=== PATIENT | female | born 1975 | race Two or more races ===

== ENCOUNTER 2022-10-22 23:09 | Emergency (ER) | payer OTHER ==
[~2022-10-22] VITALS: Ht 162.6 cm; Wt 74.0 kg
[2022-10-23 00:44] LABS: Urine Bacteria FEW /hpf (None Seen); Urine Blood 1+ /uL (Negative); Urine Hyaline Cast FEW /lpf (0 - 2); Urine Specific Gravity 1.004 (1.001-1.035); Urine WBC 7 /hpf (0 - 5)
[2022-10-23] MEDS ORDERED: NITR-87 PO (07:33)
[2022-10-23] MEDS ORDERED: cefTRIAXone SOD 1,000 MG VL IM ONE (07:45)
[2022-10-23] MEDS ORDERED: cloNIDine HCL 0.1 MG TAB PO ONE (07:45)
[2022-10-23 08:05] VITALS: BP 147/75
== END 2022-10-23 08:00 | disposition home or self-care (01) ==
LOC: ER 23:09
DX: I10 Essential (primary) hypertension (principal); N39.0 Urinary tract infection, site not specified; M79.605 Pain in left leg; M79.604 Pain in right leg; Z79.899 Other long term (current) drug therapy
CPT/HCPCS: 81001; 93970; 96372; 99284; J0696

== ENCOUNTER 2024-06-15 16:05 | Inpatient (IN) | payer MEDICAID, OTHER ==
[~2024-06-15] VITALS: Ht 157.5 cm; Wt 77.5 kg
[~2024-06-15 16:05] MED LIST: NITR-87 PO
--- NOTE | 2024-06-15 16:30 | ED.PDOC ---
GI ASSESSMENT HPI Comments 48 y/o F presents to the ED for CC of abdominal pain. Patient states, that she has been experiencing diffuse abdominal pain with associated symptoms of left flank pain and nausea x4days. Patient denies any recent strenuous activity or consumption of out of the ordinary foods. Patient denies hematuria, dysuria, vomiting, or diarrhea. Patient denies social history. No other symptoms or modifying factors at this time. Time Seen by MD: 16:10 Primary Care Provider: GILBERTO Reviewed Notes: Nurses Notes Allergies: Coded Allergies: No Known Drug Allergy (Verified Allergy, Unknown, 12/05/22) Home Meds Active Scripts Pantoprazole Sodium Sesquihydr (Protonix) 40 Mg Tab, 40 MG PO DAILY for 10 Days, #10 TAB Prov:GONZALEZ COX MD 06/15/24 Nitrofurantoin Monohydrate Mac (Macrobid) 100 Mg Cap, 100 MG PO BID for 7 Days, #14 CAP Prov:GONZALEZ CXO MD 10/23/22 Information Source: Patient Mode of Arrival: Ambulatory Timing: Days Duration: Since onset Prehospital treatment: None Quality: None Vomitus: None Stool: Normal Severity: None Recent: None Recent Hx of: None Pain Location: Diffuse Modifying Factors: Nothing Associated sign and symptoms: Nausea Past Medical History PAST MEDICAL HISTORY: Anemia, HTN Surgical History: Denies all surgeries [employer]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 [employer] Hx Family History Family History: Reviewed,noncontributory to illness Social History Smoker: Non-Smoker Alcohol: Denies ETOH Use Drugs: Denies Drug Use Lives In: Home Constitutional: denies: chills, diaphoresis, fatigue, fever, malaise, sweats, weakness, others EENTM: denies: blurred vision, double vision, ear bleeding, ear discharge, ear drainage, ear pain, ear ringing, eye pain, eye redness, hearing loss, mouth pain, mouth swelling, nasal discharge, nose bleeding, nose congestion, nose pain, photophobia, tearing, throat pain, throat swelling, voice changes, others Respiratory: denies: cough, hemoptysis, orthopnea, SOB at rest, shortness of breath, SOB with excertion, stridor, wheezing, others Cardiovascular: denies: chest pain, dizzy spells, diaphoresis, Dyspnea on exertion, edema, irregular heart beat, left arm pain, lightheadedness, palpitations, PND, syncope, others Gastrointestinal: reports: abdominal pain, nausea; denies: abdomen distended, blood streaked bowels, constipated, diarrhea, dysphagia, difficulty swallowing, hematemesis, melena, poor appetite, poor fluid intake, rectal bleeding, rectal pain, vomiting, others Genitourinary: denies: abnormal vagina bleeding, burning, dyspareunia, dysuria, flank pain, frequency, hematuria, incontinence, pain, , vagina discharge, urgency, others Neurological: denies: dizziness, fainting, headache, left sided numbness, left sided weakness, numbness, paresthesia, pre-existing deficit, right sided numbness, right sided weakness, seizure, speech problems, tingling, tremors, weakness, others Musculoskeletal: reports: others (left sided flank pain); denies: back pain, gout, joint pain, joint swelling, muscle pain, muscle stiffness, neck pain Integumetry: denies: bruises, change in color, change in hair/nails, dryness, laceration, lesions, lumps, rash, wounds, others Allergic/Immunocompromised: denies: Difficulty Healing, Frequent Infections, Hives, Itching, others Hematologic/Lymphatic: denies: anemia, blood clots, easy bleeding, easy bruising, swollen glands, others Endocrine: denies: excessive hunger, excessive sweating, excessive thirst, excessive urination, flushing, intolerance to cold, intolerance to heat, unexplained weight gain, unexplained weight loss, others Psychiatric: denies: anxiety, bipolar disorder, depression, hopeless, panic disorder, schizophrenia, sleepless, suicidal, others All Other Systems: Reviewed and Negative Physical Exam General Appearance: Moderate Distress HEENT: Normal ENT Inspection, Pharynx Normal, TMs Normal Neck: Full Range of Motion, Non-Tender, Normal, Normal Inspection Respiratory: Chest Non-Tender, Lungs Clear, No Accessory Muscle Use, No Respiratory Distress, Normal Breath Sounds Cardiovascular: No Edema, No JVD, No Murmur, No Gallop, Normal Peripheral Pulses, Regular Rate/Rhythm Breast Exam: Deferred Gastrointestinal: No Organomegaly, Non Tender, No Pulsatile Mass, Normal Bowel Sounds, Soft Genitalia: Deferred Pelvic: Deferred Rectal: Deferred Extremities: No calf tenderness, Normal capillary refill, Normal inspection, Normal range of motion, Non-tender, No pedal edema Musculoskeletal : Apperance: Normal 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 Was a procedure done?: No GI differential Dx Differential Diagnosis: Cholecystitis, Constipation, Esophagitis, Gastritis/PUD, Gastroenteritis, Electrolyte Imbalance, Food Poisoning, Bacterial, Viral X-Ray, Labs, Meds, VS Vital Signs Date Time Temp Pulse Resp B/P (MAP) Pulse Ox O2 Delivery O2 Flow Rate FiO2 06/15/24 16:31 99 Room Air* 0 21 06/15/24 16:30 98.0 83 17 167/61 (96) 99 98.0 06/15/24 16:28 98.0 83 17 167/61 (96) 99 Lab Test 06/15/24 16:17 Range/Units White Blood Count Pending Red Blood Count Pending Hemoglobin Pending Hematocrit Pending Mean Corpuscular Volume Pending Mean Corpuscular Hemoglobin Pending Mean Corpuscular Hemoglobin Concent Pending Red Cell Distribution Width Pending Platelet Count Pending Mean Platelet Volume Pending Neutrophils (%) (Auto) Pending Lymphocytes (%) (Auto) Pending Monocytes (%) (Auto) Pending Basophils (%) (Auto) Pending Neutrophils # (Auto) Pending Lymphocytes # (Auto) Pending Monocytes # (Auto) Pending Sodium Level 137 136-145 mmol/L Potassium Level 3.7 3.5-5.1 mmol/L Chloride Level 105 98-107 mmol/L Carbon Dioxide Level 26 20-31 mmol/L Anion Gap 6 5-15 Blood Urea Nitrogen 10 9-23 mg/dL Creatinine 0.68 0.550-1.02 mg/dL Glomerular Filtration Rate Calc 106 >90 mL/min BUN/Creatinine Ratio 14.7 10.0-20.0 Serum Glucose 95 74-106 mg/dL Calcium Level 9.4 8.7-10.4 mg/dL Lipase 38 12-53 U/L Patient alert. Complaining of abdominal discomfort. Abdomen is soft nontender. Vitals stable. Answering all questions. Ambulating. No urinary symptoms. Lipase within normal limits. Possible gastritis. Was given Protonix. No sign of sepsis. No leg swelling. No chest pain. Reviewed her history. Explained to the patient. Severe anemia GI consultation. Endoscope. Time of 1ST Reevaluation: 16:40 Reevaluation 1ST: Unchanged Patient Education/Counseling: Diagnosis, Treatment Family Education/Counseling: No Family Present Departure 1 Departure Time of Disposition: 16:58 Impression: Primary Impression: Severe anemia Additional Impression: Gastritis Qualified Codes: K29.00 - Acute gastritis without bleeding Disposition: ADMITTED INPATIENT Admit to: Med Surg Condition: Guarded e-Prescriptions Pantoprazole Sodium Sesquihydr (Protonix) 40 Mg Tab 40 MG PO DAILY for 10 Days, #10 TAB Prov: GONZALEZ COX MD 06/15/24 Critical Care Note Critical Care Time?: No Stability Stability form required: No Heart Score Heart Score: Heart Score Response (Comments) Value History N/A 0 EKG N/A 0 Age N/A 0 Risk Factors N/A 0 Troponin N/A 0 Total 0 I personally scribed for GONZALEZ COX MD ([email or web address]) on 06/15/24 at 16:30. Electronically submitted by Claritza Guzman ([email or web address]). GONZALEZ COX MD Jun 15, 2024 16:30
[2024-06-15 16:31] VITALS: O2SAT 99
[2024-06-15 16:43] LABS: Basophils # (auto) 0.1 10 ^3/uL (0-0.2); Lymphocytes # (auto) 1.6 10 ^3/uL (0.4-5.4); Monocytes # (auto) 0.5 10 ^3/uL (0-1.3); Neutrophils # (auto) 4.5 10 ^3/uL (1.6-8.6); Nucleated Red Blood Cells % 0.1 %
[2024-06-15 16:45] LABS: Basophils % (auto) 1.2 % (0.0-2.0); Eosinophils # (auto) 0.1 10 ^3/uL (0-0.8); Eosinophils % (auto) 0.9 % (0.0-7.0); Hematocrit 24.2 % (36.0-46.0); Lymphocytes % (auto) 23.3 % (10.0-50.0); Mean Corpuscular Hemoglobin 17.3 pg (28.0-32.0); Mean Corpuscular Hgb Conc. 28.8 g/dL (32.0-36.0); Mean Corpuscular Volume 59.9 fL (80.0-100.0); Monocytes % (auto) 7.4 % (0.0-12.0); Neutrophils % (auto) 67.2 % (37.0-80.0); Platelet Count (auto) 352 10^3/uL (140-450); Red Blood Cells 4.05 10^6/uL (4.0-5.20); White Blood Cell 6.7 10^3/uL (4.4-10.8)
[2024-06-15 16:48] LABS: Chloride 105 mmol/L (98-107); Potassium 3.7 mmol/L (3.5-5.1); Sodium 137 mmol/L (136-145)
[2024-06-15 16:49] LABS: Anion Gap 6 (5-15); Calcium 9.4 mg/dL (8.7-10.4); Carbon Dioxide 26 mmol/L (20-31)
[2024-06-15 16:54] LABS: BUN/Creatinine Ratio 14.7 (10.0-20.0); Blood Urea Nitrogen 10 mg/dL (9-23); Glucose 95 mg/dL (74-106); Lipase 38 U/L (12-53)
[2024-06-15] MEDS ORDERED: PANT40TA2 PO (16:59)
[2024-06-15 17:06] LABS: Red Cell Distribution Width 21.2 % (11.8-14.3)
[2024-06-15 17:11] LABS: Urine Bacteria None Seen /hpf (None Seen)
[2024-06-15] MEDS: PANTOPRAZOLE 40 MG/10 ML VIAL INJ IV ONE (17:21)
[2024-06-15 17:37] LABS: Urine Blood Negative /uL (Negative); Urine Clarity Clear (Clear); Urine Color Light-Yellow (Yellow); Urine Mucus FEW (None Seen); Urine Protein, UAD Negative (Negative); Urine Specific Gravity 1.022 (1.001-1.035); Urine Squamous Epithelial Cell MOD /hpf (<5); Urine Urobilinogen Normal (Negative); Urine WBC 3 /HPF (0-5); Urine pH 6.5 (5.0-9.0)
[2024-06-15 18:03] VITALS: PULSE 69; RESP 16; O2SAT 99
[2024-06-15 19:02] LABS: Anisocytosis Slight; Hypochromia Marked; Platelet Estimate Adequate
[2024-06-15 19:03] LABS: Large Platelets FEW
--- NOTE | 2024-06-15 19:26 | DVH ---
Exam: CT CT AB PEL WO CON-NO ORAL OR IV History: abd. pain Comparison Study: None available TECHNIQUE: Multidetector CT of the abdomen and pelvis was performed from lung bases to pubic symphysi s. Imaging was performed without IV contrast. Axial, coronal, and sagittal multiplanar reformats were obtained from the axial data set by the technologist. RADIATION DOSE: DLP 541.96 mGy.cm; CTDI vol 10.23 mGy. Findings: Lungs: The lung bases are clear. Heart: No cardiomegaly or pericardial effusion. Liver: Unremarkable. Gallbladder: Unremarkable. Spleen: Unremarkable Pancreas: Unremarkable Adrenals: Unremarkable Kidneys: Unremarkable GI tract: Diverticulosis without evidence of acute diverticulitis. : Bilateral ovarian cystic lesions. Mildly enlarged uterus with free fluid in the endometrium. Vasculature: Unremarkable Lymphadenopathy: Absent Peritoneum: No ascites Musculoskeletal: Unremarkable Soft tissues: Unremarkable Impression: 1. No acute abdominopelvic abnormalities. 2. Diverticulosis without evidence of acute diverticulitis. 3. Bilateral ovarian cystic lesions. Mildly enlarged uterus with free fluid in the endometrium. Recom mend pelvic ultrasound for further evaluation.
[2024-06-15 19:35] VITALS: PULSE 74; RESP 16; O2SAT 100
[2024-06-15 20:08] LABS: % Iron Saturation 3.8 % (15-50)
[2024-06-15 20:13] LABS: INR 0.95 (0.9-1.15); Partial Thromboplastin Time 25.1 SEC (24.5-34.5); Prothrombin Time 10.1 sec (9.3-11.8)
[2024-06-15 21:21] VITALS: BP 165/53; PULSE 73; RESP 19; TEMP 97.9; O2SAT 100
[2024-06-15] MEDS: HYDROcodone-ACET 5/325MG TAB PO PRN (22:29)
--- NOTE | 2024-06-15 23:26 | DVHHP2 ---
History of Present Illness Reason for Visit: Abdominal pain History of Present Illness 48-year-old female presents for evaluation of pain. Patient presents with a four day history of left upper quadrant abdominal pain and occasionally epigastric pain. She also reports episodes of nausea without emesis. She states his symptoms became worse yesterday so she presented for further evaluation. Denies dysuria or hematuria. No fever or chills. No other acute complaints reported. Past Medical History Hypertension and anemia Past Surgical History Denies Family History Noncontributory Smoke: No ALCOHOL: none Drugs: None Lives: with Family Review of Systems Review of Systems Review of systems are currently negative otherwise addressed in HPI. Allergies: Coded Allergies: No Known Drug Allergy (Verified Allergy, Unknown, 12/05/22) Medications Current Medications Medications Dose Ordered Sig/Jose A Route Start Time Stop Time Status Last Admin Dose Admin Pantoprazole Sodium 40 mg DAILY IV 06/16/24 10:00 Acetaminophen/ Hydrocodone Bitart 1 tab Q4HP PRN PO 06/15/24 18:45 06/15/24 22:29 1 TAB Ondansetron HCl 4 mg Q4HP PRN IV 06/15/24 18:45 Acetaminophen 650 mg Q6HP PRN PO 06/15/24 18:45 Exam Vital Signs Vital Signs Date Time Temp Pulse Resp B/P (MAP) Pulse Ox O2 Delivery O2 Flow Rate FiO2 06/15/24 21:55 Room Air* 0 21 06/15/24 21:21 97.9 73 19 165/53 (90) 100 97.9 Exam Gen: 48-year-old female in mild distress Skin: Warm, dry, normal color and texture, no rash. HEENT: Normocephalic atraumatic, mucous membranes moist and pink. Neck: Cervical and supraclavicular nodes normal without enlargement, trachea is midline, thyroid gland is normal without masses. Pulmonary: Clear to auscultation and percussion bilaterally. Cardiac: Regular rate and rhythm. No murmur Abdomen: Soft, left upper quadrant pain, nondistended, bowel sounds present all 4 quadrants, no guarding, no rigidity, no organomegaly. Extremities: No cyanosis, clubbing, no edema Neuro: Cranial nerves II through XII grossly intact, normal affect and speech, no focal motor deficits. Labs/Xrays ORDERING PHYSICIAN: MARICRUZ DUFFY PROCEDURE(s): ABPL - CT AB PEL WO CON-NO ORAL OR IV REASON: abd. pain ORDER NUMBER(s): [id number], ACCESSION NUMBER(s): [id number] Exam: CT CT AB PEL WO CON-NO ORAL OR IV History: abd. pain Comparison Study: None available TECHNIQUE: Multidetector CT of the abdomen and pelvis was performed from lung bases to pubic symphysis. Imaging was performed without IV contrast. Axial, coronal, and sagittal multiplanar reformats were obtained from the axial data set by the technologist. RADIATION DOSE: DLP 541.96 mGy.cm; CTDI vol 10.23 mGy. Findings: Lungs: The lung bases are clear. Heart: No cardiomegaly or pericardial effusion. Liver: Unremarkable. Gallbladder: Unremarkable. Spleen: Unremarkable Pancreas: Unremarkable Adrenals: Unremarkable Kidneys: Unremarkable GI tract: Diverticulosis without evidence of acute diverticulitis. : Bilateral ovarian cystic lesions. Mildly enlarged uterus with free fluid in the endometrium. Vasculature: Unremarkable Lymphadenopathy: Absent Peritoneum: No ascites Musculoskeletal: Unremarkable Soft tissues: Unremarkable Impression: 1. No acute abdominopelvic abnormalities. 2. Diverticulosis without evidence of acute diverticulitis. 3. Bilateral ovarian cystic lesions. Mildly enlarged uterus with free fluid in the endometrium. Recommend pelvic ultrasound for further evaluation. ATED BY: CAROLYN DELGADO DO DICTATED DATE/TIME: 06/15/241922 Labs Test 06/15/24 19:30 06/15/24 16:17 06/15/24 16:00 Range/Units Prothrombin Time 10.1 9.3-11.8 sec Prothrombin Time INR 0.95 0.9-1.15 Activated Partial Thromboplast Time 25.1 24.5-34.5 SEC Iron Level 15 L 50-170 ug/dL Total Iron Binding Capacity 399 250-425 ug/dL Percent Iron Saturation 3.8 L 15-50 % White Blood Count 6.7 4.4-10.8 10^3/uL Red Blood Count 4.05 4.0-5.20 10^6/uL Hemoglobin 7.0 *L 12.2-16.2 g/dL Hematocrit 24.2 L 36.0-46.0 % Mean Corpuscular Volume 59.9 L 80.0-100.0 fL Mean Corpuscular Hemoglobin 17.3 L 28.0-32.0 pg Mean Corpuscular Hemoglobin Concent 28.8 L 32.0-36.0 g/dL Red Cell Distribution Width 21.2 H 11.8-14.3 % Platelet Count 352 140-450 10^3/uL Mean Platelet Volume 8.9 6.9-10.8 fL Neutrophils (%) (Auto) 67.2 37.0-80.0 % Lymphocytes (%) (Auto) 23.3 10.0-50.0 % Monocytes (%) (Auto) 7.4 0.0-12.0 % Eosinophils (%) (Auto) 0.9 0.0-7.0 % Basophils (%) (Auto) 1.2 0.0-2.0 % Neutrophils # (Auto) 4.5 1.6-8.6 10 ^3/uL Lymphocytes # (Auto) 1.6 0.4-5.4 10 ^3/uL Monocytes # (Auto) 0.5 0-1.3 10 ^3/uL Eosinophils # (Auto) 0.1 0-0.8 10 ^3/uL Basophils # (Auto) 0.1 0-0.2 10 ^3/uL Nucleated Red Blood Cells 0.1 % Platelet Estimate Adequate Large Platelets Few Hypochromasia (manual) Marked Poikilocytosis (manual) Slight Anisocytosis (manual) Slight Microcytosis Marked Sodium Level 137 136-145 mmol/L Potassium Level 3.7 3.5-5.1 mmol/L Chloride Level 105 98-107 mmol/L Carbon Dioxide Level 26 20-31 mmol/L Anion Gap 6 5-15 Blood Urea Nitrogen 10 9-23 mg/dL Creatinine 0.68 0.550-1.02 mg/dL Glomerular Filtration Rate Calc 106 >90 mL/min BUN/Creatinine Ratio 14.7 10.0-20.0 Serum Glucose 95 74-106 mg/dL Calcium Level 9.4 8.7-10.4 mg/dL Lipase 38 12-53 U/L Urine Color Light-yellow Yellow Urine Clarity Clear Clear Urine pH 6.5 5.0-9.0 Urine Specific [place] 1.022 1.001-1.035 Urine Protein Negative Negative Urine Ketones Negative Negative Urine Blood Negative Negative /uL Urine Nitrite Negative Negative Urine Bilirubin Negative Negative Urine Urobilinogen Normal Negative mg/dL Urine Leukocyte Esterase Trace Negative /uL Urine RBC 1 0 - 4 /hpf Urine Microscopic WBC 3 0-5 /HPF Urine Squamous Epithelial Cells Mod <5 /hpf Urine Bacteria None seen None Seen /hpf Urine Mucus Few None Seen Urine Glucose Normal Normal mg/dL Assessment/Plan Assessment/Plan Assessment Acute abdominal pain Anemia Hypertension Plan Admit the patient to [facility] to the hospitalist GI consultation Clear liquid diet Continue treatment per orders. Plan discussed with: Patient My Orders Orders - MARICRUZ DUFFY Procedure Category Date Status Time Pantoprazole PHA 06/16/24 In Process (Protonix) 10:00 Basic Metabolic Panel LAB 06/16/24 Verified 04:00 Admit ADMIT 06/15/24 Transmitted 18:31 Hydrocodone-Acet PHA 06/15/24 In Process 5/325mg Tab ([place] 18:45 Ondansetron Hcl PHA 06/15/24 In Process (Zofran) 18:45 Complete Blood Count LAB 06/16/24 Verified 04:00 Condition: Stable JAREK 06/15/24 In Process 18:31 Acetaminophen Tablet PHA 06/15/24 In Process (Tylenol Tablet) 18:45 Clear Liq Diet DIET 06/16/24 Transmitted Breakfast Bedrest With Bathroom JAREK 06/15/24 In Process Privileg 18:31 Ct Ab Pel Wo Con-No CT 06/15/24 Resulted Oral Or Iv 18:31 Pelvic US 06/15/24 Logged 22:51 Stool Occult Blood LAB 06/15/24 Logged 23:05 Date of Service: Jun 15, 2024 Billing Provider: MARICRUZ DUFFY Common Visit Codes: [id number] INP/OBS CARE (MOD) MARICRUZ DUFFY Jun 15, 2024 23:26
[2024-06-16] VITALS (11 sets, daily range): BP systolic 133–150; BP diastolic 8–82; PULSE 62–72; RESP 16–20; TEMP 97.9–99; O2SAT 64–99
--- NOTE | 2024-06-16 01:34 | DVH ---
INDICATION: Abdominal pain TECHNIQUE: Multiple real-time grayscale transabdominal sonographic images along with color and duplex Doppler of the uterus and ovaries were obtained. COMPARISON: None FINDINGS: The uterus measures 12.7 x 9.6 x 5.0 cm. The endometrial stripe measures 0.8 cm. Multiple s mall fibroids are seen throughout the uterus, the largest measuring up to 2.3 cm. Right ovary measures 4.1 x 1.8 x 2.5 cm with normal Doppler color flow. Anechoic cyst in the right o vary measures up to 1.7 cm. Left ovary measures 3.3 x 3.7 x 4.8 cm with normal Doppler color flow. Anechoic cyst in the left ova ry measures up to 3.9 cm. IMPRESSION: No acute findings identified. Multiple small uterine fibroids, the largest measuring up to 2.3 cm.
[2024-06-16 07:53] LABS: Eosinophils # (auto) 0.1 10 ^3/uL (0-0.8); Lymphocytes # (auto) 1.4 10 ^3/uL (0.4-5.4); Monocytes # (auto) 0.3 10 ^3/uL (0-1.3); Nucleated Red Blood Cells % 0.1 %; White Blood Cell 4.1 10^3/uL (4.4-10.8)
[2024-06-16 07:57] LABS: Basophils # (auto) 0.1 10 ^3/uL (0-0.2); Basophils % (auto) 1.5 % (0.0-2.0); Chloride 107 mmol/L (98-107); Eosinophils % (auto) 2.3 % (0.0-7.0); Lymphocytes % (auto) 34.5 % (10.0-50.0); Mean Corpuscular Hemoglobin 17.2 pg (28.0-32.0); Mean Corpuscular Hgb Conc. 29.1 g/dL (32.0-36.0); Mean Corpuscular Volume 59.3 fL (80.0-100.0); Monocytes % (auto) 7.5 % (0.0-12.0); Neutrophils # (auto) 2.2 10 ^3/uL (1.6-8.6); Neutrophils % (auto) 54.2 % (37.0-80.0); Platelet Count (auto) 294 10^3/uL (140-450); Potassium 3.6 mmol/L (3.5-5.1); Red Blood Cells 3.71 10^6/uL (4.0-5.20); Sodium 138 mmol/L (136-145)
[2024-06-16 07:58] LABS: Anion Gap 6 (5-15); Calcium 8.7 mg/dL (8.7-10.4); Carbon Dioxide 25 mmol/L (20-31)
[2024-06-16 08:03] LABS: BUN/Creatinine Ratio 10.1 (10.0-20.0); Glucose 94 mg/dL (74-106)
[2024-06-16 08:08] LABS: Blood Urea Nitrogen 7 mg/dL (9-23)
[2024-06-16 08:13] LABS: Red Cell Distribution Width 20.8 % (11.8-14.3)
[2024-06-16 08:15] LABS: Hemoglobin 6.4 g/dL (12.2-16.2)
[2024-06-16] MEDS: PANTOPRAZOLE 40 MG/10 ML VIAL INJ IV SCH ×2 (10:07→21:07)
--- NOTE | 2024-06-16 11:03 | DVHCONRES ---
Date Seen: Jun 16, 2024 Resident Creating Document: LESLIE MONTALVO RESIDENT History of Present Illness This is a 48-year-old female patient who presented to the ER with a chief complaint of abdominal pain and bloating for the past 4 days. Patient says that the pain is constant radiates to the back and is unrelated to food. Associated symptoms include nausea but no vomiting. Denies constipation or diarrhea. She recently had UTI and was prescribed antibiotics and Motrin which she took twice in the past 4 weeks. Also reports that her menstrual period Used to be heavy, last menstrual period was 2 months back. Profile suggestive of iron-deficiency anemia. Patient is transfused 1 packed RBC already. Hemoglobin was 6.4 on arrival. Patient also reports that yesterday there was red blood in her stool. Does not remember how long she had been bleeding per rectally. Patient seen and examined at the bedside. Rectal exam performed, external hemorrhoids seen but not bleeding. Formed stool noticed which was dark brown. No active bleeding. No masses felt. Allergies: Coded Allergies: No Known Drug Allergy (Verified Allergy, Unknown, 12/05/22) Current Medications Current Medications Medications (Trade) Dose Ordered Sig/Jose A Route PRN Reason Start Time Stop Time Status Last Admin Pantoprazole Sodium (Protonix) 40 mg DAILY IV 06/16/24 10:00 06/16/24 10:07 Acetaminophen/ Hydrocodone Bitart ([place] 5/325MG Tab) 1 tab Q4HP PRN PO MODERATE PAIN (4-6 PAIN SCALE) 06/15/24 18:45 06/15/24 22:29 Ondansetron HCl (Zofran) 4 mg Q4HP PRN IV NAUSEA / VOMITING 06/15/24 18:45 Acetaminophen (Tylenol Tablet) 650 mg Q6HP PRN PO PAIN SCALE 1-3 OR TEMP>100.4 06/15/24 18:45 Review of Systems Eyes: No Pain, No Vision change, No Conjunctivae inflammation, No Eyelid inflammation, No Other, No Redness ENT: No Ear pain, No Ear discharge, No Nose pain, No Nose discharge, No Nose congestion, No Mouth pain, No Mouth swelling, No Throat pain, No Throat swelling, No Other Cardiovascular: No Chest Pain, No Palpitations, No Orthopnea, No PND, No Edema, No Lt Headedness, No Other Respiratory: No Cough, No Dry, No Shortness of breath, No SOB with exertion, No Wheezing, No Hemoptysis, No Pleuritic Pain, No Sputum, No Other Gastrointestinal: Abdominal pain, back pain, nausea. Denies vomiting, constipation or diarrhea. Genitourinary: No Dysuria, No Frequency, No Incontinence, No Hematuria, No Retention, No Other Musculoskeletal: No other, No neck pain, No shoulder pain, No arm pain, No back pain, No hand pain, No leg pain, No foot pain Skin: No Rash, No Lesions, No Jaundice, No Bruising, No Other Vital Signs Vital Signs Date Time Temp Pulse Resp B/P (MAP) Pulse Ox O2 Delivery O2 Flow Rate FiO2 06/16/24 09:00 98.8 65 17 133/69 (90) 97 98.8 06/15/24 21:55 Room Air* 0 21 Physical Exam Obese female patient lying in bed, in no acute distress General: Obese, afebrile, palor, mucosae are moist Cardiovascular: Regular S1 and S2. No murmurs, gallops or rubs. No JVD elevation. No pedal edema Respiratory: Normal B/L air entry on room air. Clear lung sounds on auscultation Abdomen: Soft, epigastric tenderness, nondistended, normoactive bowel sounds, no rebound tenderness, no organomegaly, no masses. Rectal exam performed, external hemorrhoids seen but not bleeding. Formed stool noticed which was dark brown. No active bleeding. No masses felt. Genitourinary: Deferred MSK/skin: Mobilizes 4 limbs. Skin is dry and warm Neurological: No motor, no sensitive deficits, normal speech. Pupils are isocoric and reactive. Psych/Mental Status: A/Ox3 Labs/Diagnostic Data Labs Test 06/16/24 06:53 06/15/24 19:30 06/15/24 16:17 06/15/24 16:00 Range/Units White Blood Count 4.1 #L 4.4-10.8 10^3/uL Red Blood Count 3.71 L 4.0-5.20 10^6/uL Hemoglobin 6.4 *L 12.2-16.2 g/dL Hematocrit 22.0 L 36.0-46.0 % Mean Corpuscular Volume 59.3 L 80.0-100.0 fL Mean Corpuscular Hemoglobin 17.2 L 28.0-32.0 pg Mean Corpuscular Hemoglobin Concent 29.1 L 32.0-36.0 g/dL Red Cell Distribution Width 20.8 H 11.8-14.3 % Platelet Count 294 140-450 10^3/uL Mean Platelet Volume 9.5 6.9-10.8 fL Neutrophils (%) (Auto) 54.2 37.0-80.0 % Lymphocytes (%) (Auto) 34.5 10.0-50.0 % Monocytes (%) (Auto) 7.5 0.0-12.0 % Eosinophils (%) (Auto) 2.3 0.0-7.0 % Basophils (%) (Auto) 1.5 0.0-2.0 % Neutrophils # (Auto) 2.2 1.6-8.6 10 ^3/uL Lymphocytes # (Auto) 1.4 0.4-5.4 10 ^3/uL Monocytes # (Auto) 0.3 0-1.3 10 ^3/uL Eosinophils # (Auto) 0.1 0-0.8 10 ^3/uL Basophils # (Auto) 0.1 0-0.2 10 ^3/uL Nucleated Red Blood Cells 0.1 % Sodium Level 138 136-145 mmol/L Potassium Level 3.6 3.5-5.1 mmol/L Chloride Level 107 98-107 mmol/L Carbon Dioxide Level 25 20-31 mmol/L Anion Gap 6 5-15 Blood Urea Nitrogen 7 L 9-23 mg/dL Creatinine 0.69 0.550-1.02 mg/dL Glomerular Filtration Rate Calc 106 >90 mL/min BUN/Creatinine Ratio 10.1 10.0-20.0 Serum Glucose 94 74-106 mg/dL Calcium Level 8.7 8.7-10.4 mg/dL Prothrombin Time 10.1 9.3-11.8 sec Prothrombin Time INR 0.95 0.9-1.15 Activated Partial Thromboplast Time 25.1 24.5-34.5 SEC Iron Level 15 L 50-170 ug/dL Total Iron Binding Capacity 399 250-425 ug/dL Percent Iron Saturation 3.8 L 15-50 % Platelet Estimate Adequate Large Platelets Few Hypochromasia (manual) Marked Poikilocytosis (manual) Slight Anisocytosis (manual) Slight Microcytosis Marked Lipase 38 12-53 U/L Urine Color Light-yellow Yellow Urine Clarity Clear Clear Urine pH 6.5 5.0-9.0 Urine Specific [place] 1.022 1.001-1.035 Urine Protein Negative Negative Urine Ketones Negative Negative Urine Blood Negative Negative /uL Urine Nitrite Negative Negative Urine Bilirubin Negative Negative Urine Urobilinogen Normal Negative mg/dL Urine Leukocyte Esterase Trace Negative /uL Urine RBC 1 0 - 4 /hpf Urine Microscopic WBC 3 0-5 /HPF Urine Squamous Epithelial Cells Mod <5 /hpf Urine Bacteria None seen None Seen /hpf Urine Mucus Few None Seen Urine Glucose Normal Normal mg/dL Assessment Assessment: Probable GI bleeding Questionable abnormal uterine bleeding Iron-deficiency anemia requiring transfusion secondary to above Diverticulosis but no active diverticulitis Bilateral ovarian cystic lesions Hepatic steatosis CT abdomen completed shows diverticulosis without evidence of active diverticulitis. No acute abdominopelvic abnormalities. Bilateral ovarian cystic lesions. Liver ultrasound shows echogenic liver parenchyma likely related to hepatic steatosis Plan: Scheduled for EGD and colonoscopy 06/17/2024 Consider OBGYN consultation for AUB Continue bowel prep Maintain hemoglobin greater than 7 grams/deciliter. Transfuse as necessary. Continue pantoprazole 40 mg IV b.i.d. Follow up with hepatitis studies Stool occult is negative Plan discussed with the patient in which all questions have been answered Case discussed with Dr. Gibson. Plan discussed with: Patient LESLIE MONTALVO RESIDENT Jun 16, 2024 11:03
--- NOTE | 2024-06-16 11:24 | DVHPN2 ---
Subjective The patient is seen and examined at bedside. The patient still have abdominal pain. The patient's hemoglobin down today at 6.4. Reviewed: Care Plan, H&P, Labs, Medications, Previous Orders, Radiology Changes from previous H/P or p: No Changes Objective Vitals Vital Signs Date Time Temp Pulse Resp B/P (MAP) Pulse Ox O2 Delivery O2 Flow Rate FiO2 06/16/24 09:00 98.8 65 17 133/69 (90) 97 98.8 06/15/24 21:55 Room Air* 0 21 Intake/Output Intake and Output 06/16/24 07:00 Intake Total 400 ml Balance 400 ml Intake Oral 400 ml # Voids 1 General Appearance: Alert, Oriented X3, Cooperative, No acute distress HEENT: Atraumatic, PERRLA, EOMI, Mucous membr. moist/pink Neck: Supple Lungs: Clear to auscultation, Normal air movement Cardiovascular: Regular rate, Normal S1, Normal S2, No murmurs, Gallops, Rubs Neuro: Cranial nerves 3-12 NL Psych/Mental Status: Mental status NL Medications Current Medications Medications Dose Ordered Sig/Jose A Route Start Time Stop Time Status Last Admin Dose Admin Pantoprazole Sodium 40 mg DAILY IV 06/16/24 10:00 06/16/24 10:07 40 MG Acetaminophen/ Hydrocodone Bitart 1 tab Q4HP PRN PO 06/15/24 18:45 06/15/24 22:29 1 TAB Ondansetron HCl 4 mg Q4HP PRN IV 06/15/24 18:45 Acetaminophen 650 mg Q6HP PRN PO 06/15/24 18:45 Laboratory Results Laboratory Tests 06/16/24 06:53 Chemistry Test 06/15/24 16:17 06/16/24 06:53 Calcium Level 9.4 mg/dL (8.7-10.4) 8.7 mg/dL (8.7-10.4) Coagulation Test 06/15/24 19:30 Prothrombin Time 10.1 sec (9.3-11.8) Prothrombin Time INR 0.95 (0.9-1.15) Activated Partial Thromboplast Time 25.1 SEC (24.5-34.5) Lipid panel Test 06/15/24 16:17 Lipase 38 U/L (12-53) Urinalysis Test 06/15/24 16:00 Urine Color Light-yellow (Yellow) Urine Clarity Clear (Clear) Urine pH 6.5 (5.0-9.0) Urine Specific [place] 1.022 (1.001-1.035) Urine Protein Negative (Negative) Urine Ketones Negative (Negative) Urine Blood Negative /uL (Negative) Urine Nitrite Negative (Negative) Urine Bilirubin Negative (Negative) Urine Urobilinogen Normal mg/dL (Negative) Urine Leukocyte Esterase Trace /uL (Negative) Urine RBC 1 /hpf (0 - 4) Urine Microscopic WBC 3 /HPF (0-5) Urine Squamous Epithelial Cells Mod /hpf (<5) Urine Bacteria None seen /hpf (None Seen) Urine Mucus Few (None Seen) Urine Glucose Normal mg/dL (Normal) Labs and/or images reviewed: Labs reviewed by me Assessment/Plan Assessment/Plan Acute abdominal pain Anemia ? acute blood lost Hypertension Bilateral ovary cysts, per patient she had workup as outpatient. Uterine fibroid Plan: Continuing current management. I will type and cross and transfuse one packed red blood cell today. Using top distribution executive I explained to the patient in length why she needs blood transfusions. Waiting for GI specialist to see the patient. Discussed with the patient regarding to her ovarian cysts. Per patient she had a biopsy as outpatient and seen OBGYN as outpatient for that. This medical document was created using an electronic medical record system with [employer] direct computerized dictation system. Although this document has been carefully reviewed, there may still be some phonetic and typographical errors. These areas are purely typographical due to imperfections of the software programs, and do not reflect any compromise in the patient's medical care. Plan discussed with: Patient Date of Service: Jun 16, 2024 Billing Provider: LENO CROSS MD Common Visit Codes: [id number] INP/OBS CARE(HIGH) LENO CROSS MD Jun 16, 2024 11:24
[2024-06-16 12:41] LABS: Alkaline Phosphatase 95 U/L (46-116); Aspartate Aminotransferase 13 U/L (13-40); Total Protein 6.2 g/dL (5.7-8.2)
[2024-06-16 12:44] LABS: Alanine Aminotransferase < 9 U/L (7-40); Bilirubin, Direct < 0.1 mg/dL (<0.3); Bilirubin, Total 0.3 mg/dL (0.2-1.0)
[2024-06-16] MEDS: ONDANSETRON HCL 4 MG/2 ML VIAL IV PRN (14:38)
--- NOTE | 2024-06-16 15:48 | DVH ---
ULTRASOUND ABDOMEN LIMITED INDICATION: cirrhosis TECHNIQUE: Multiple real-time sonographic images of the abdomen were obtained. COMPARISON: CT abdomen 06/15/2024. FINDINGS: The visualized liver parenchyma appears echogenic likely related to hepatic steatosis. . The live r measures 15.5 cm. No discrete hepatic lesion or intrahepatic biliary ductal dilatation is renée ntified. There is no evidence of gallstones, gallbladder wall thickening or pericholecystic fluid. The common biliary duct is not dilated. The right kidney measures 10.3 cm length. No sonographic evidence of nephrolithiasis or hydronephro sis. Visualized portions of the pancreas appears within normal limits. IMPRESSION: 1. Echogenic liver parenchyma likely related to hepatic steatosis. 2. There is no sonographic evidence of cholelithiasis. HS:Y
[2024-06-16] MEDS: GOLYTELY 4L KIT PO ONE ×2 (18:05→23:19)
[2024-06-17] VITALS (8 sets, daily range): BP systolic 124–148; BP diastolic 58–74; PULSE 67–85; RESP 15–20; TEMP 97.5–98.1; O2SAT 97–100
[2024-06-17] MEDS: MAGNESIUM CITRATE SOLUTION 300 ML BTL PO ONE (05:03)
[2024-06-17] MEDS: GOLYTELY 4L KIT PO ONE (05:42)
--- NOTE | 2024-06-17 06:43 | DVH ---
EXAM: XR Chest, 1 View CLINICAL INDICATION: per protocol prior to procedure-Colonoscopy TECHNIQUE: Frontal view of the chest. COMPARISON: XY CHEST PORTABLE on DOS: 12/05/22 FINDINGS: LUNGS AND PLEURAL SPACES: Unremarkable. No consolidation. No pneumothorax. HEART: Unremarkable. No cardiomegaly. MEDIASTINUM: Unremarkable. Normal mediastinal contour. BONES/JOINTS: Unremarkable. No acute fracture. OTHER FINDINGS: . . IMPRESSION: No acute cardiopulmonary process.
[2024-06-17 07:29] LABS: Basophils # (auto) 0 10 ^3/uL (0-0.2); Eosinophils # (auto) 0.1 10 ^3/uL (0-0.8); Hemoglobin 7.7 g/dL (12.2-16.2); Monocytes # (auto) 0.5 10 ^3/uL (0-1.3); Nucleated Red Blood Cells % 0.1 %; White Blood Cell 6.1 10^3/uL (4.4-10.8)
[2024-06-17 07:32] LABS: Basophils % (auto) 0.7 % (0.0-2.0); Eosinophils % (auto) 1.1 % (0.0-7.0); Hematocrit 25.5 % (36.0-46.0); Lymphocytes # (auto) 1.6 10 ^3/uL (0.4-5.4); Lymphocytes % (auto) 26.3 % (10.0-50.0); Mean Corpuscular Hemoglobin 18.8 pg (28.0-32.0); Mean Corpuscular Hgb Conc. 30.1 g/dL (32.0-36.0); Mean Corpuscular Volume 62.5 fL (80.0-100.0); Monocytes % (auto) 7.8 % (0.0-12.0); Neutrophils # (auto) 3.9 10 ^3/uL (1.6-8.6); Neutrophils % (auto) 64.1 % (37.0-80.0); Platelet Count (auto) 274 10^3/uL (140-450); Red Blood Cells 4.09 10^6/uL (4.0-5.20); Red Cell Distribution Width 23.6 % (11.8-14.3)
[2024-06-17 07:49] LABS: Albumin 3.9 g/dL (3.2-4.8); Alkaline Phosphatase 94 U/L (46-116); Anion Gap 11 (5-15); BUN/Creatinine Ratio 9.1 (10.0-20.0); Calcium 9.3 mg/dL (8.7-10.4); Carbon Dioxide 23 mmol/L (20-31); Chloride 104 mmol/L (98-107); Glucose 88 mg/dL (74-106); Magnesium 2.2 mg/dL (1.6-2.6); Sodium 138 mmol/L (136-145)
[2024-06-17 07:50] LABS: Bilirubin, Total 0.4 mg/dL (0.2-1.0); Total Protein 6.4 g/dL (5.7-8.2)
[2024-06-17 07:58] LABS: Alanine Aminotransferase < 9 U/L (7-40); Aspartate Aminotransferase 10 U/L (13-40); Blood Urea Nitrogen 6 mg/dL (9-23); Potassium 3.3 mmol/L (3.5-5.1)
--- NOTE | 2024-06-17 09:35 | ECG ---
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
[2024-06-17] MEDS ORDERED: DexAMETHasone SOD PHOS 10MG/1ML VIAL INJ IV ONE (10:26)
[2024-06-17] MEDS ORDERED: LIDOCAINE VISCOUS 2% 15ML UD ONE (11:34)
[2024-06-17] MEDS ORDERED: fentaNYL CITRATE 100 MCG/2 ML VL ONE (12:25)
[2024-06-17] MEDS ORDERED: MEPERIDINE HCL (25 MG/ML) 1ML VIAL ONE (12:25)
[2024-06-17] MEDS ORDERED: MIDAZOLAM HCL 2MG/2ML 2ml VIAL (1mg/ml) ONE (12:25)
--- NOTE | 2024-06-17 13:01 | DVHOP2 ---
Operative Report DATE OF OPERATION: 06/17/24 PROCEDURE: Upper Endoscopy with biopsy PREOPERATIVE INDICATION: The patient is a 48 -year-old female undergoing endoscopy for anemia iron-deficiency microcytic POSTOPERATIVE DIAGNOSES: 1. Mild gastritis and minimal duodenitis with a couple of superficial erosions PROCEDURE PERFORMED BY: Heike Gibson GI NURSE: Davon SCOPE: Olympus videoendoscope. ASA CLASS: 2. PREOPERATIVE MEDICATIONS: Mac sedation, Dr. Ag PROCEDURE IN DETAIL: After obtaining an informed consent, the patient was placed on left lateral decubitus position. The patient was then sedated with the above medications. A bite block was placed between her teeth. The endoscope was then passed through the oropharynx, into the esophagus, and through the stomach and pylorus up to the second and third part of the duodenum. The endoscope was then withdrawn. The 2nd and 3rd part of the duodenal were normal in the duodenal bulb showed minimal duodenitis Duodenal biopsies were obtained The pre-pyloric area antrum and body showed mild gastritis with a couple of superficial erosions. Gastric biopsies were obtained. On retroflexion the fundus cardia and angularis were normal. The endoscope was then withdrawn into the distal esophagus where she had a slightly irregular squamocolumnar junction but no significant hiatal hernia or esophagitis The remaining distal and proximal esophagus and oropharynx were unremarkable The patient tolerated the procedure well without difficulty. COMPLICATIONS : None SPECIMENS: Duodenal biopsies Gastric biopsies DISPOSITION: Transfer back to the floor Stable PLAN: 1. Await for biopsy result 2. Will place pt on Protonix 40 mg p.o. daily 3. DC aspirin NSAIDs smoking alcohol 4. Outpatient follow up with me in 4-6 weeks to review results and discuss further management HEIKE GIBSON MD Jun 17, 2024 13:01
--- NOTE | 2024-06-17 13:05 | DVHOP2 ---
Operative Report DATE OF OPERATION: 06/17/24 PROCEDURE: Colonoscopy with snare polypectomy. PREOPERATIVE INDICATION: The patient is a 48 -year-old female undergoing colonoscopy for screening due to severe iron-deficiency anemia POSTOPERATIVE DIAGNOSES: 1. Patient had a 5 cm long tubular descending colon multi lobe polyp on a long stalk that was removed completely via snare polypectomy and the specimens were retrieved 2. There was a 3-4 mm benign-appearing proximal descending colon polyp that was seen and removed by snare polypectomy and the specimens were retrieved 3. Moderate scattered diverticular disease most prominent in the sigmoid 4. Trace to 1+ internal hemorrhoids otherwise normal examination up to the cecum PROCEDURE PERFORMED BY: Heike Gibson M.D. SCOPE: Olympus videocolonoscope. ASA CLASS: 2. PREOPERATIVE MEDICATIONS: Dr. Kimberli Carty PROCEDURE IN DETAIL: After obtaining an informed consent, the patient was placed on left lateral decubitus position. She was then sedated with the above medications. A rectal examination was performed that was normal. The colonoscope was then passed through the anus into the rectosigmoid and through the descending, transverse, and ascending colon up to the cecum with visualization of the appendiceal orifice, base of the cecum and the ileocecal valve. The colonoscope was then withdrawn. No colitis was noted. Patient had moderate scattered diverticular disease more prominent in the sigmoid. Patient had a 3-4 mm benign-appearing proximal descending colon polyp that was seen and removed by snare polypectomy and the specimens were retrieved The patient had a large multi lobe 5 cm polyp on a long stalk seen in the descending colon at about 40 cm above the anal verge. This was removed completely via snare polypectomy and the specimens were retrieved On retroflexion and straight on view the patient had trace to 1+ internal hemorrhoids The patient tolerated the procedure well without difficulty. WITHDRAWAL TIME: 12 minutes QUALITY OF THE PREP: [place] Bowel Prep score: 9. COMPLICATIONS : None SPECIMENS: Descending colon polyp proximal Distal descending colon polyp large DISPOSITION: Transfer back to the floor Stable PLAN: 1. Repeat colonoscopy base on biopsy result likely in 2-3 years 2. Resume GI soft diet advance as tolerated 3. Increase fluid and fiber intake 4. Outpatient follow up with me in 4-6 weeks to review results and discuss further management HEIKE GIBSON MD Jun 17, 2024 13:05
[2024-06-17] MEDS: POTASSIUM CHL 20MEQ/100ML 100 ML IV ONE (14:16)
[2024-06-18] VITALS (7 sets, daily range): BP systolic 108–135; BP diastolic 50–72; PULSE 58–75; RESP 17–18; TEMP 36.6; O2SAT 98–99
[2024-06-18 08:57] LABS: Hepatitis B Surface Antigen Negative (Negative)
[2024-06-18 09:16] LABS: Hepatitis C Antibody Negative (Negative)
[2024-06-18 10:02] LABS: Anion Gap 10 (5-15); Carbon Dioxide 22 mmol/L (20-31); Chloride 105 mmol/L (98-107); Potassium 3.6 mmol/L (3.5-5.1); Sodium 137 mmol/L (136-145)
[2024-06-18 10:03] LABS: Calcium 9.4 mg/dL (8.7-10.4)
[2024-06-18 10:08] LABS: BUN/Creatinine Ratio 12.8 (10.0-20.0); Blood Urea Nitrogen 10 mg/dL (9-23)
[2024-06-18 10:20] LABS: Basophils # (auto) 0 10 ^3/uL (0-0.2); Basophils % (auto) 0.1 % (0.0-2.0); Eosinophils # (auto) 0 10 ^3/uL (0-0.8); Hemoglobin 7.8 g/dL (12.2-16.2); Lymphocytes # (auto) 0.9 10 ^3/uL (0.4-5.4)
[2024-06-18 10:22] LABS: Glucose 142 mg/dL (74-106)
[2024-06-18 10:23] LABS: Hematocrit 26.3 % (36.0-46.0); Mean Corpuscular Hemoglobin 19.1 pg (28.0-32.0); Mean Corpuscular Hgb Conc. 29.7 g/dL (32.0-36.0); Mean Corpuscular Volume 64.3 fL (80.0-100.0); Monocytes # (auto) 0.7 10 ^3/uL (0-1.3); Monocytes % (auto) 8.2 % (0.0-12.0); Neutrophils # (auto) 7.3 10 ^3/uL (1.6-8.6); Neutrophils % (auto) 81.7 % (37.0-80.0); Nucleated Red Blood Cells % 0.1 %; Platelet Count (auto) 300 10^3/uL (140-450); Red Blood Cells 4.09 10^6/uL (4.0-5.20); Red Cell Distribution Width 22.8 % (11.8-14.3)
--- NOTE | 2024-06-18 10:37 | DVHPN2 ---
Subjective The patient is seen and examined at bedside. The patient still have abdominal pain. Reviewed: Care Plan, H&P, Labs, Medications, Previous Orders, Radiology Changes from previous H/P or p: No Changes Objective Vitals Vital Signs Date Time Temp Pulse Resp B/P (MAP) Pulse Ox O2 Delivery O2 Flow Rate FiO2 06/17/24 08:50 98.3 63 18 108/69 (82) 98 98.3 06/17/24 07:56 Room Air* 0 21 Intake/Output Intake and Output 06/18/24 07:00 Intake Total 1180 ml Balance 1180 ml Intake Oral 1080 ml IV Total 100 ml # Voids 5 General Appearance: Alert, Oriented X3, Cooperative, No acute distress HEENT: Atraumatic, PERRLA, EOMI, Mucous membr. moist/pink Neck: Supple Lungs: Clear to auscultation, Normal air movement Cardiovascular: Regular rate, Normal S1, Normal S2, No murmurs, Gallops, Rubs Neuro: Cranial nerves 3-12 NL Psych/Mental Status: Mental status NL Medications Current Medications Medications Dose Ordered Sig/Jose A Route Start Time Stop Time Status Last Admin Dose Admin Acetaminophen/ Hydrocodone Bitart 1 tab Q4HP PRN PO 06/15/24 18:45 06/17/24 19:53 1 TAB Ondansetron HCl 4 mg Q4HP PRN IV 06/15/24 18:45 06/16/24 14:38 4 MG Acetaminophen 650 mg Q6HP PRN PO 06/15/24 18:45 Pantoprazole Sodium 40 mg BID IV 06/16/24 22:00 06/18/24 08:31 40 MG Laboratory Results Laboratory Tests 06/18/24 09:15 Chemistry Test 06/18/24 09:15 Calcium Level 9.4 mg/dL (8.7-10.4) Urinalysis Test 06/15/24 16:00 Urine Color Light-yellow (Yellow) Urine Clarity Clear (Clear) Urine pH 6.5 (5.0-9.0) Urine Specific [place] 1.022 (1.001-1.035) Urine Protein Negative (Negative) Urine Ketones Negative (Negative) Urine Blood Negative /uL (Negative) Urine Nitrite Negative (Negative) Urine Bilirubin Negative (Negative) Urine Urobilinogen Normal mg/dL (Negative) Urine Leukocyte Esterase Trace /uL (Negative) Urine RBC 1 /hpf (0 - 4) Urine Microscopic WBC 3 /HPF (0-5) Urine Squamous Epithelial Cells Mod /hpf (<5) Urine Bacteria None seen /hpf (None Seen) Urine Mucus Few (None Seen) Urine Glucose Normal mg/dL (Normal) Labs and/or images reviewed: Labs reviewed by me Assessment/Plan Assessment/Plan Acute abdominal pain Anemia ? acute blood lost Hypertension Bilateral ovary cysts, per patient she had workup as outpatient. Uterine fibroid Plan: Continuing current management. I will type and cross and transfuse one packed red blood cell today. Using straightening machine feeder I explained to the patient in length why she needs blood transfusions. Waiting for GI specialist to see the patient. Discussed with the patient regarding to her ovarian cysts. Per patient she had a biopsy as outpatient and seen OBGYN as outpatient for that. This medical document was created using an electronic medical record system with M[employer] flu[employer]Glad to Have You direct computerized dictation system. Although this document has been carefully reviewed, there may still be some phonetic and typographical errors. These areas are purely typographical due to imperfections of the software programs, and do not reflect any compromise in the patient's medical care. Plan discussed with: Patient, Daughter Date of Service: Jun 17, 2024 Billing Provider: LENO CROSS MD Common Visit Codes: [id number] INP/OBS CARE(HIGH) LENO CROSS MD Jun 18, 2024 10:37
--- NOTE | 2024-06-18 10:37 | DVHPN2 ---
Subjective The patient is seen and examined at bedside. The patient still have abdominal pain. The patient's hemoglobin down today at 6.4. Reviewed: Care Plan, H&P, Labs, Medications, Previous Orders, Radiology Objective Vitals Vital Signs Date Time Temp Pulse Resp B/P (MAP) Pulse Ox O2 Delivery O2 Flow Rate FiO2 06/18/24 08:50 98.3 63 18 108/69 (82) 98 98.3 06/18/24 07:56 Room Air* 0 21 Intake/Output Intake and Output 06/18/24 07:00 Intake Total 1180 ml Balance 1180 ml Intake Oral 1080 ml IV Total 100 ml # Voids 5 General Appearance: Alert, Oriented X3, Cooperative, No acute distress HEENT: Atraumatic, PERRLA, EOMI, Mucous membr. moist/pink Neck: Supple Lungs: Clear to auscultation, Normal air movement Cardiovascular: Regular rate, Normal S1, Normal S2, No murmurs, Gallops, Rubs Neuro: Cranial nerves 3-12 NL Psych/Mental Status: Mental status NL Medications Current Medications Medications Dose Ordered Sig/Jose A Route Start Time Stop Time Status Last Admin Dose Admin Acetaminophen/ Hydrocodone Bitart 1 tab Q4HP PRN PO 06/15/24 18:45 06/17/24 19:53 1 TAB Ondansetron HCl 4 mg Q4HP PRN IV 06/15/24 18:45 06/16/24 14:38 4 MG Acetaminophen 650 mg Q6HP PRN PO 06/15/24 18:45 Pantoprazole Sodium 40 mg BID IV 06/16/24 22:00 06/18/24 08:31 40 MG Laboratory Results Laboratory Tests 06/18/24 09:15 Chemistry Test 06/18/24 09:15 Calcium Level 9.4 mg/dL (8.7-10.4) Urinalysis Test 06/15/24 16:00 Urine Color Light-yellow (Yellow) Urine Clarity Clear (Clear) Urine pH 6.5 (5.0-9.0) Urine Specific [place] 1.022 (1.001-1.035) Urine Protein Negative (Negative) Urine Ketones Negative (Negative) Urine Blood Negative /uL (Negative) Urine Nitrite Negative (Negative) Urine Bilirubin Negative (Negative) Urine Urobilinogen Normal mg/dL (Negative) Urine Leukocyte Esterase Trace /uL (Negative) Urine RBC 1 /hpf (0 - 4) Urine Microscopic WBC 3 /HPF (0-5) Urine Squamous Epithelial Cells Mod /hpf (<5) Urine Bacteria None seen /hpf (None Seen) Urine Mucus Few (None Seen) Urine Glucose Normal mg/dL (Normal) Assessment/Plan Assessment/Plan Acute abdominal pain Anemia ? acute blood lost Hypertension Bilateral ovary cysts, per patient she had workup as outpatient. Uterine fibroid Plan: Continuing current management. I will type and cross and transfuse one packed red blood cell today. Using sound ranging crewmember I explained to the patient in length why she needs blood transfusions. Waiting for GI specialist to see the patient. Discussed with the patient regarding to her ovarian cysts. Per patient she had a biopsy as outpatient and seen OBGYN as outpatient for that. This medical document was created using an electronic medical record system with [employer] direct computerized dictation system. Although this document has been carefully reviewed, there may still be some phonetic and typographical errors. These areas are purely typographical due to imperfections of the software programs, and do not reflect any compromise in the patient's medical care. LENO CROSS MD Jun 18, 2024 10:37
--- NOTE | 2024-06-18 12:13 | DVHPN2 ---
Progress Note Date Seen: Jun 18, 2024 Resident Creating Document: LESLIE MONTALVO RESIDENT Medical Necessity Reason Pt with a Central, PICC or Fol: No Subjective Review of Systems This is a 48-year-old female patient who presented to the ER with a chief complaint of abdominal pain and bloating for the past 4 days. Patient says that the pain is constant radiates to the back and is unrelated to food. Associated symptoms include nausea but no vomiting. Denies constipation or diarrhea. She recently had UTI and was prescribed antibiotics and Motrin which she took twice in the past 4 weeks. Also reports that her menstrual period Used to be heavy, last menstrual period was 2 months back. Profile suggestive of iron-deficiency anemia. Patient is transfused 1 packed RBC already. Hemoglobin was 6.4 on arrival. Patient also reports that yesterday there was red blood in her stool. Does not remember how long she had been bleeding per rectally. Patient seen and examined at the bedside. No acute complaint. Objective vital signs Vital Sign Date Time Temp Pulse Resp B/P (MAP) Pulse Ox O2 Delivery O2 Flow Rate FiO2 06/18/24 08:50 98.3 63 18 108/69 (82) 98 98.3 06/18/24 07:56 Room Air* 0 21 Total Intake and Output 06/17/24 06/17/24 06/18/24 15:00 23:00 07:00 Intake Total 100 ml 480 ml 600 ml Balance 100 ml 480 ml 600 ml medications Current Medications Medications Dose Ordered Sig/Jose A Route Start Time Stop Time Status Last Admin Dose Admin Acetaminophen/ Hydrocodone Bitart 1 tab Q4HP PRN PO 06/15/24 18:45 06/17/24 19:53 1 TAB Ondansetron HCl 4 mg Q4HP PRN IV 06/15/24 18:45 06/16/24 14:38 4 MG Acetaminophen 650 mg Q6HP PRN PO 06/15/24 18:45 Pantoprazole Sodium 40 mg BID IV 06/16/24 22:00 06/18/24 08:31 40 MG Examination Obese female patient lying in bed, in no acute distress General: Obese, afebrile, palor, mucosae are moist Cardiovascular: Regular S1 and S2. No murmurs, gallops or rubs. No JVD elevation. No pedal edema Respiratory: Normal B/L air entry on room air. Clear lung sounds on auscultation Abdomen: Soft, epigastric tenderness, nondistended, normoactive bowel sounds, no rebound tenderness, no organomegaly, no masses. Rectal exam performed, external hemorrhoids seen but not bleeding. Formed stool noticed which was dark brown. No active bleeding. No masses felt. Genitourinary: Deferred MSK/skin: Mobilizes 4 limbs. Skin is dry and warm Neurological: No motor, no sensitive deficits, normal speech. Pupils are isocoric and reactive. Psych/Mental Status: A/Ox3 laboratory and microbiology Laboratory Tests 06/18/24 09:15 Test 06/18/24 09:15 Range/Units Serum Glucose 142 H 74-106 mg/dL Labs and/or images reviewed: Labs reviewed by me, Image(s) reviewed by me Problem List/Assessment/Plan Problem List/Assessment/Plan Assessment: Lower GI bleeding secondary to tubular descending colon multilevel polyp Mild gastritis and minimal duodenitis Less likely abnormal uterine bleeding Iron-deficiency anemia requiring transfusion secondary to above Sigmoid Diverticulosis but no active diverticulitis Bilateral ovarian cystic lesions Hepatic steatosis CT abdomen completed shows diverticulosis without evidence of active diverticulitis. No acute abdominopelvic abnormalities. Bilateral ovarian cystic lesions. Liver ultrasound shows echogenic liver parenchyma likely related to hepatic steatosis Plan: Colonoscopy completed 06/17/2024 shows 5 cm long tubular descending colon multi lobe polyp on a long stalk that was removed completely via snare polypectomy and the specimens. 3-4 mm benign-appearing proximal descending colon polyp that was seen and removed by snare polypectomy and the specimens were retrieved. Trace to 1+ internal hemorrhoids EGD completed 06/17/24 mild gastritis and minimal duodenitis with a couple of superficial erosions. Protonix 40 mg p.o. daily. Avoid NSAIDs/aspirin/alcohol. Outpatient follow up with GI in 4-6 weeks to review biopsy results and discuss further management. Stable to be discharged Negative Hepatitis studies Stool occult is negative Plan discussed with the patient in which all questions have been answered Case discussed with Dr. Gibson. Plan discussed with: Patient LESLIE MONTALVO RESIDENT Jun 18, 2024 12:13
--- NOTE | 2024-06-18 17:04 | DVHDS2 ---
Discharge Summary Date of Admission Jun 15, 2024 at 18:31 Date of Discharge: Jun 18, 2024 Admitting Diagnosis Acute abdominal pain Anemia Hypertension Labs/Diagnostic Data: Laboratory Results Test 06/18/24 09:15 06/17/24 06:40 06/16/24 13:10 06/16/24 06:51 White Blood Count 9.0 10^3/uL (4.4-10.8) Red Blood Count 4.09 10^6/uL (4.0-5.20) Hemoglobin 7.8 g/dL (12.2-16.2) Hematocrit 26.3 % (36.0-46.0) Mean Corpuscular Volume 64.3 fL (80.0-100.0) Mean Corpuscular Hemoglobin 19.1 pg (28.0-32.0) Mean Corpuscular Hemoglobin Concent 29.7 g/dL (32.0-36.0) Red Cell Distribution Width 22.8 % (11.8-14.3) Platelet Count 300 10^3/uL (140-450) Mean Platelet Volume 9.1 fL (6.9-10.8) Neutrophils (%) (Auto) 81.7 % (37.0-80.0) Lymphocytes (%) (Auto) 10.0 % (10.0-50.0) Monocytes (%) (Auto) 8.2 % (0.0-12.0) Eosinophils (%) (Auto) 0.0 % (0.0-7.0) Basophils (%) (Auto) 0.1 % (0.0-2.0) Neutrophils # (Auto) 7.3 10 ^3/uL (1.6-8.6) Lymphocytes # (Auto) 0.9 10 ^3/uL (0.4-5.4) Monocytes # (Auto) 0.7 10 ^3/uL (0-1.3) Eosinophils # (Auto) 0 10 ^3/uL (0-0.8) Basophils # (Auto) 0 10 ^3/uL (0-0.2) Nucleated Red Blood Cells 0.1 % Sodium Level 137 mmol/L (136-145) Potassium Level 3.6 mmol/L (3.5-5.1) Chloride Level 105 mmol/L (98-107) Carbon Dioxide Level 22 mmol/L (20-31) Anion Gap 10 (5-15) Blood Urea Nitrogen 10 mg/dL (9-23) Creatinine 0.78 mg/dL (0.550-1.02) Glomerular Filtration Rate Calc 92 mL/min (>90) BUN/Creatinine Ratio 12.8 (10.0-20.0) Serum Glucose 142 mg/dL (74-106) Calcium Level 9.4 mg/dL (8.7-10.4) Magnesium Level 2.2 mg/dL (1.6-2.6) Total Bilirubin 0.4 mg/dL (0.2-1.0) Aspartate Amino Transferase (AST) 10 U/L (13-40) Alanine Aminotransferase (ALT) < 9 U/L (7-40) Alkaline Phosphatase 94 U/L (46-116) Total Protein 6.4 g/dL (5.7-8.2) Albumin 3.9 g/dL (3.2-4.8) Hepatitis B Surface Antigen Negative (Negative) Hepatitis C Antibody Negative (Negative) Direct Bilirubin < 0.1 mg/dL (<0.3) Test 06/16/24 00:00 06/15/24 19:30 06/15/24 16:17 06/15/24 16:00 Stool Occult Blood Negative (Negative) Stool Occult Blood Sample #3 (Negative) Prothrombin Time 10.1 sec (9.3-11.8) Prothrombin Time INR 0.95 (0.9-1.15) Activated Partial Thromboplast Time 25.1 SEC (24.5-34.5) Iron Level 15 ug/dL (50-170) Total Iron Binding Capacity 399 ug/dL (250-425) Percent Iron Saturation 3.8 % (15-50) Platelet Estimate Adequate Large Platelets Few Hypochromasia (manual) Marked Poikilocytosis (manual) Slight Anisocytosis (manual) Slight Microcytosis Marked Lipase 38 U/L (12-53) Urine Color Light-yellow (Yellow) Urine Clarity Clear (Clear) Urine pH 6.5 (5.0-9.0) Urine Specific [place] 1.022 (1.001-1.035) Urine Protein Negative (Negative) Urine Ketones Negative (Negative) Urine Blood Negative /uL (Negative) Urine Nitrite Negative (Negative) Urine Bilirubin Negative (Negative) Urine Urobilinogen Normal mg/dL (Negative) Urine Leukocyte Esterase Trace /uL (Negative) Urine RBC 1 /hpf (0 - 4) Urine Microscopic WBC 3 /HPF (0-5) Urine Squamous Epithelial Cells Mod /hpf (<5) Urine Bacteria None seen /hpf (None Seen) Urine Mucus Few (None Seen) Urine Glucose Normal mg/dL (Normal) Other Laboratory Tests 06/18/24 09:15 Brief Hx & Hospital Course: This is a 48 years old female come into emergency department because of severe left upper quadrant abdominal pain associated with epigastric pain. She also had a period of nausea but no emesis. The patient denied any headache, no blurred vision. No shortness a breath, no chest pain. No abdominal pain, constipation, diarrhea. The patient subsequently seen by GI specialist Dr. Gibson. She took the patient to the OR and did the endoscopy which showed the patient has gastritis, possible enteritis . The colonoscopy showed polyps which has been removed. The patient also had severe anemia and required transfusion. Physical exam: HEENT: Normocephalic atraumatic pupils equal react to light and accommodation. Extraocular muscles intact, conjunctiva pink, oropharynx moist, no thrush, no exudate. Lymphatic: No lymphadenopathy Cardiovascular exam: S1, S2 was heard. No murmurs, rubs, gallops Lung: Clear on auscultation bilaterally, no wheeze, rale, rhonchi. GI: Abdominal soft, nondistended, nontenderness, positive bowel sounds. Extremity: No crepitus, cyanosis, edema. Pedal pulses present bilateral. Full range of motion. Skin: Normal turgor, no rash. Psych: Alert, oriented x3. Neurology: No focal deficits, cranial nerve II to XII grossly intact. This medical document was created using an electronic medical record system with [employer] direct computerized dictation system. Although this document has been carefully reviewed, there may still be some phonetic and typographical errors. These areas are purely typographical due to imperfections of the software programs, and do not reflect any compromise in the patient's medical care. 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 Discharge Statement: "Patient was advised to return to the ER or call 911 if any headaches, dizziness, shortness of breath, chest pain, abdominal pain, bleeding, fevers, or worsening of medical condition. Patient was counseled about treatment plan, medications, possible side effects, patientverbalized understanding. All questions were answered to the best of my ability. This discharge took greater then 30 minutes in planning, reviewing documentation, counseling the patient, and discussing with other team members." ASSESSMENT ASSESSMENT Assessment Date of Service: Jun 07, 2024 Billing Provider: LENO CROSS MD Common Visit Codes: 74074-KPD/OBS DISCH DAY >30min LENO CROSS MD Jun 18, 2024 17:04
[2024-06-18] MEDS ORDERED: PANT40TA2 PO (17:05)
[2024-06-18] MEDS: ACETAMINOPHEN 325 MG TAB PO PRN (17:55)
== END 2024-06-18 18:40 | disposition home or self-care (01) | DRG 532 ==
LOC: ER 16:05 → OVERFLOW 18:31 → EAST 21:12
PROVIDERS: ADMIT Nurse Practitioner; ATTEND Internal Medicine
PROC: 30233N1 Transfusion of Nonautologous Red Blood Cells into Peripheral Vein, Percutaneous Approach (ICD-10-PCS; principal; 2024-06-16)
PROC: 0DB68ZX Excision of Stomach, Via Natural or Artificial Opening Endoscopic, Diagnostic (ICD-10-PCS; 2024-06-17)
PROC: 0DBM8ZZ Excision of Descending Colon, Via Natural or Artificial Opening Endoscopic (ICD-10-PCS; 2024-06-17)
PROC: 0DB98ZX Excision of Duodenum, Via Natural or Artificial Opening Endoscopic, Diagnostic (ICD-10-PCS; 2024-06-17 12:20)
DX: D25.9 Leiomyoma of uterus, unspecified (principal); K29.01 Acute gastritis with bleeding; K76.0 Fatty (change of) liver, not elsewhere classified; K63.5 Polyp of colon; K57.30 Diverticulosis of large intestine without perforation or abscess without bleeding; D50.9 Iron deficiency anemia, unspecified; I10 Essential (primary) hypertension; N83.292 Other ovarian cyst, left side; N83.291 Other ovarian cyst, right side; K64.8 Other hemorrhoids; Z79.899 Other long term (current) drug therapy; K29.81 Duodenitis with bleeding; N93.9 Abnormal uterine and vaginal bleeding, unspecified
CPT/HCPCS: 36415; 71045; 74176; 76705; 76856; 80048; 80053; 80076; 81001; 82270; 83540; 83550; 83690; 83735; 85025; 85610; 85730; 86803; 86850; 86900; 86901; 86920; 87340; 93005; G0378; J1100; J2250; J2405; J2470; J3480

== ENCOUNTER 2024-08-20 17:45 | Emergency (ER) | payer MEDICAID ==
[~2024-08-20] VITALS: Ht 162.6 cm; Wt 78.8 kg
[~2024-08-20 17:45] MED LIST changes: -NITR-87 PO; +PANT40TA2 PO
[2024-08-20 18:40] LABS: Urine Amorphous Crystal FEW /hpf (None Seen); Urine Bacteria FEW /hpf (None Seen); Urine Blood 3+ /uL (Negative); Urine Clarity Clear (Clear); Urine Color Colorless (Yellow); Urine Protein, UAD Negative (Negative); Urine Specific Gravity 1.004 (1.001-1.035); Urine Squamous Epithelial Cell FEW /hpf (<5); Urine Urobilinogen Normal (Negative); Urine WBC < 1 /HPF (0-5); Urine pH 5.5 (5.0-9.0)
[2024-08-20 19:01] LABS: Hematocrit 28.3 % (36.0-46.0); Hemoglobin 8.5 g/dL (12.2-16.2); Mean Corpuscular Hemoglobin 18.8 pg (28.0-32.0); Mean Corpuscular Hgb Conc. 30.2 g/dL (32.0-36.0); Mean Corpuscular Volume 62.3 fL (80.0-100.0); Platelet Count (auto) 323 10^3/uL (140-450); Red Blood Cells 4.55 10^6/uL (4.0-5.20); White Blood Cell 6.5 10^3/uL (4.4-10.8)
[2024-08-20 19:20] LABS: Basophils % (manual) 0 (0.0-2.0); Blast Cells 0; Metamyelocytes % 0; Myelocytes % 0; Promyelocytes % 0; Reactive Lymphocytes 0
[2024-08-20 19:24] LABS: Alanine Aminotransferase 18 U/L (7-40); Albumin 4.4 g/dL (3.2-4.8); Anion Gap 5 (5-15); BUN/Creatinine Ratio 14.1 (10.0-20.0); Blood Urea Nitrogen 11 mg/dL (9-23); Calcium 9.4 mg/dL (8.7-10.4); Carbon Dioxide 28 mmol/L (20-31); Chloride 106 mmol/L (98-107); Potassium 3.7 mmol/L (3.5-5.1); Sodium 139 mmol/L (136-145); Total Protein 6.9 g/dL (5.7-8.2)
[2024-08-20 19:25] LABS: Alkaline Phosphatase 126 U/L (46-116); Aspartate Aminotransferase 11 U/L (13-40); Bilirubin, Total 0.3 mg/dL (0.2-1.0); Glucose 112 mg/dL (74-106)
--- NOTE | 2024-08-20 19:44 | DVH ---
PELVIC ULTRASOUND WITH TRANSABDOMINAL IMAGING CLINICAL HISTORY: post-menopausal bleeding COMPARISON: US PELVIC on DOS: 06/15/24 TECHNIQUE: Transabdominal grayscale, color-flow Doppler, and duplex Doppler was performed. FINDINGS: Uterus: The uterus measures 9.8 x 5.7 x 8.2 cm. A few small hypoechoic lesions are again noted in th e myometrium, the largest measuring approximately 2 cm in diameter. Endometrium: Overall thickness of 1.1 cm with trace fluid in the canal. The right ovary measures 2.7 x 2.9 x 1.3 cm. The left ovary measures 2.2 x 2.7 x 2.2 cm. Both ovarie s demonstrate dopplerable blood flow on spectral analysis. No free fluid identified in the cul-de-sac. IMPRESSION: Hypoechoic uterine lesions which again may represent fibroids. MRI may be obtained to further evaluat e/characterize. Trace fluid/blood products in the endometrial canal.
--- NOTE | 2024-08-20 19:50 | ED.PDOC ---
History of Present Illness HPI Comments 48 y/o overweight F, with a Hx of anemia, gastritis, and HTN, presents with c/o abnormal vaginal bleeding and generalized itchiness, today. Patient reports on unprovoked additional onset of itchiness, last night, following ongoing bleeding for the past 7x days. She reports on bleeding being heavier than her usual periods and concerns for anemia, due to recent history that required 2x packed red blood cell transfusion during her last encounter at [facility] on June 15, 2024. She denies any pain, urinary symptoms, weakness, numbness, rash patch, fever, or chills at this time. Chief Complaint: Vaginal Bleed Time Seen by MD: 19:20 Primary Care Provider: none Reviewed Notes: Nurses Notes, Medications, Allergies Allergies: Coded Allergies: No Known Drug Allergy (Verified Allergy, Unknown, 12/05/22) Home Meds Active Scripts Diphenhydramine Hcl (Benadryl Allergy) 25 Mg Cap, 1 CAP PO Q6HP PRN, #60 CAP 1 Refill Prov:GABBIE SMITH MD 08/20/24 Ferrous Sulfate (FERROUS SULFATE) 325 Mg Tb, 1 TAB PO DAILY for 60 Days, #60 TAB 3 Refills Prov:GABBIE SMITH MD 08/20/24 Pantoprazole Sodium Sesquihydr (Protonix) 40 Mg Tab, 40 MG PO DAILY, #30 TAB Prov:LENO CROSS MD 06/18/24 Information Source: Patient Mode of Arrival: Ambulatory Severity: Moderate Timing: Days Duration: Since onset Prehospital treatment: None Past Medical History PAST MEDICAL HISTORY: Anemia, HTN Past Medical History (Other): gastritis Surgical History: Denies all surgeries 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: 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 GENERAL DISTILLERY WORKER Hx Family History Family History: Reviewed,noncontributory to illness Social History Smoker: Non-Smoker Alcohol: Denies ETOH Use Drugs: Denies Drug Use Lives In: Home All Other Systems: Reviewed and Negative (Comprehensive systems review obtained and negative except for what is stated in the HPI.) Physical Exam General Appearance: Mild Distress, Other (overweight ) HEENT: Normal ENT Inspection, Pharynx Normal, TMs Normal Neck: Full Range of Motion, Non-Tender, Normal, Normal Inspection Respiratory: Chest Non-Tender, Lungs Clear, No Accessory Muscle Use, No Respiratory Distress, Normal Breath Sounds Cardiovascular: No Edema, No JVD, No Murmur, No Gallop, Normal Peripheral Pulses, Regular Rate/Rhythm Breast Exam: Deferred Gastrointestinal: No Organomegaly, Non Tender, No Pulsatile Mass, Normal Bowel Sounds, Soft Genitalia: Deferred Pelvic: Deferred Rectal: Deferred Extremities: No calf tenderness, Normal capillary refill, Normal inspection, Normal range of motion, Non-tender, No pedal edema Musculoskeletal : Apperance: Normal Neurologic: Alert, care program director II-XII nml as Tested, No Motor Deficits, Normal Affect, Normal Mood, No Sensory Deficits Cerebellar Function: Normal Reflexes: Normal Skin: Dry, Normal Color, Warm, Other (no signs of rash ) Lymphatic: No Adenopathy Was a procedure done? Was a procedure done?: No Differential Dx Considerations may include: menorrhea, menorrhagia, anemia, UTI, viral syndrome, dermatitis, cellulitis, among others X-Ray, Labs, Meds, VS Vital Signs Date Time Temp Pulse Resp B/P (MAP) Pulse Ox O2 Delivery O2 Flow Rate FiO2 08/20/24 19:54 70 20 100 Room Air* 0 21 08/20/24 19:54 97.5 70 20 154/85 (108) 100 97.5 08/20/24 18:11 97.5 70 20 154/85 (108) 100 97.5 Lab Test 08/20/24 18:45 08/20/24 18:15 Range/Units White Blood Count 6.5 4.4-10.8 10^3/uL Red Blood Count 4.55 4.0-5.20 10^6/uL Hemoglobin 8.5 L 12.2-16.2 g/dL Hematocrit 28.3 L 36.0-46.0 % Mean Corpuscular Volume 62.3 L 80.0-100.0 fL Mean Corpuscular Hemoglobin 18.8 L 28.0-32.0 pg Mean Corpuscular Hemoglobin Concent 30.2 L 32.0-36.0 g/dL Red Cell Distribution Width 24.0 H 11.8-14.3 % Platelet Count 323 140-450 10^3/uL Mean Platelet Volume 8.7 6.9-10.8 fL Neutrophils (%) (Auto) 37.0-80.0 % Lymphocytes (%) (Auto) 10.0-50.0 % Monocytes (%) (Auto) 0.0-12.0 % Eosinophils (%) (Auto) 0.0-7.0 % Basophils (%) (Auto) 0.0-2.0 % Neutrophils # (Auto) 1.6-8.6 10 ^3/uL Lymphocytes # (Auto) 0.4-5.4 10 ^3/uL Monocytes # (Auto) 0-1.3 10 ^3/uL Eosinophils # (Auto) 0-0.8 10 ^3/uL Basophils # (Auto) 0-0.2 10 ^3/uL Differential Total Cells Counted 100.0 100 Neutrophils % (Manual) 58 37.0-80.0 Band Neutrophils % (Manual) 2 Lymphocytes % (Manual) 25 10.0-50.0 Monocytes % (Manual) 12 0-12 Eosinophils % (Manual) 3 0-7 Basophils % (Manual) 0 0.0-2.0 Metamyelocytes % (manual) 0 Myelocytes % (Manual) 0 Promyelocytes % (Manual) 0 Blast Cells % (Manual) 0 Nucleated Red Blood Cells % Reactive Lymphocytes 0 Platelet Estimate Adequate Large Platelets Few Hypochromasia (manual) Marked Anisocytosis (manual) Slight Microcytosis Marked Sodium Level 139 136-145 mmol/L Potassium Level 3.7 3.5-5.1 mmol/L Chloride Level 106 98-107 mmol/L Carbon Dioxide Level 28 20-31 mmol/L Anion Gap 5 5-15 Blood Urea Nitrogen 11 9-23 mg/dL Creatinine 0.78 0.550-1.02 mg/dL Glomerular Filtration Rate Calc 92 >90 mL/min BUN/Creatinine Ratio 14.1 10.0-20.0 Serum Glucose 112 H 74-106 mg/dL Calcium Level 9.4 8.7-10.4 mg/dL Total Bilirubin 0.3 0.2-1.0 mg/dL Aspartate Amino Transferase (AST) 11 L 13-40 U/L Alanine Aminotransferase (ALT) 18 7-40 U/L Alkaline Phosphatase 126 H 46-116 U/L Total Protein 6.9 5.7-8.2 g/dL Albumin 4.4 3.2-4.8 g/dL Urine Color Colorless Yellow Urine Clarity Clear Clear Urine pH 5.5 5.0-9.0 Urine Specific [place] 1.004 1.001-1.035 Urine Protein Negative Negative Urine Ketones Negative Negative Urine Blood 3+ H Negative /uL Urine Nitrite Negative Negative Urine Bilirubin Negative Negative Urine Urobilinogen Normal Negative mg/dL Urine Leukocyte Esterase Negative Negative /uL Urine RBC 6 0 - 4 /hpf Urine Microscopic WBC < 1 0-5 /HPF Urine Squamous Epithelial Cells Few <5 /hpf Urine Amorphous Crystals Few None Seen /hpf Urine Bacteria Few H None Seen /hpf Urine Glucose Normal Normal mg/dL Current Medications Medications (Trade) Dose Ordered Sig/Jose A Route Start Time Stop Time Status Last Admin Diphenhydramine HCl (Benadryl Capsule) 25 mg ONCE ONCE PO 08/20/24 19:45 08/20/24 19:46 DC 08/20/24 19:51 [place] [id number] Ph: [phone] DIAGNOSTIC IMAGING Diagnostic Imaging Report : [id number] Signed PATIENT: KE PHAM ACCT: [id number] UNIT: [id number] : 1975 LOC: ER ROOM / BED: / AGE / SEX: 48 / F ADM STATUS: REG ER SERVICE 1821 ORDERING PHYSICIAN: GABBIE SMITH MD PROCEDURE(s): PELUS - PELVIC REASON: post-menopausal bleeding ORDER NUMBER(s): [id number], ACCESSION NUMBER(s): [id number] PELVIC ULTRASOUND WITH TRANSABDOMINAL IMAGING CLINICAL HISTORY: post-menopausal bleeding COMPARISON: US PELVIC on DOS: 06/15/24 TECHNIQUE: Transabdominal grayscale, color-flow Doppler, and duplex Doppler was performed. FINDINGS: Uterus: The uterus measures 9.8 x 5.7 x 8.2 cm. A few small hypoechoic lesions are again noted in the myometrium, the largest measuring approximately 2 cm in diameter. Endometrium: Overall thickness of 1.1 cm with trace fluid in the canal. The right ovary measures 2.7 x 2.9 x 1.3 cm. The left ovary measures 2.2 x 2.7 x 2.2 cm. Both ovaries demonstrate dopplerable blood flow on spectral analysis. No free fluid identified in the cul-de-sac. IMPRESSION: Hypoechoic uterine lesions which again may represent fibroids. MRI may be obtained to further evaluate/characterize. Trace fluid/blood products in the endometrial canal. ATED BY: MIL GRULLON MD DICTATED DATE/TIME: 08/20/241941 SIGNED BY: MIL GRULLON MD SIGNED DATE/TIME: 08/20/241941 CC: Time of 1ST Reevaluation: 19:50 Reevaluation 1ST: Unchanged Patient Education/Counseling: Diagnosis, Treatment Family Education/Counseling: No Family Present Additional Information Previous medical encounters reviewed: June 15, 2024 encounter for Abdominal pain The following tests were ordered, and results were reviewed by me: manual diffe rential, RBC, morphology, pelvic US, UA, CMP, CBC Additional Information was gathered from interviewing the following independent historians: n/a I reviewed and agreed with the following test results read by other providers: pelvic US I discussed treatment and results with medical personnel and: Patient Departure 1 Departure Time of Disposition: 21:03 Impression: Primary Impression: Anemia Additional Impressions: Dysfunctional uterine bleeding Uterine fibroid Disposition: HOME / SELF CARE / HOMELESS Condition: Stable e-Prescriptions Diphenhydramine Hcl (Benadryl Allergy) 25 Mg Cap 1 CAP PO Q6HP PRN, #60 CAP 1 Refill Prov: GABBIE SMITH MD 08/20/24 Ferrous Sulfate (FERROUS SULFATE) 325 Mg Tb 1 TAB PO DAILY for 60 Days, #60 TAB 3 Refills Prov: GABBIE SMITH MD 08/20/24 Discharged With: Self Critical Care Note Critical Care Time?: No Stability Stability form required: No Heart Score Heart Score: Heart Score Response (Comments) Value History N/A 0 EKG N/A 0 Age N/A 0 Risk Factors N/A 0 Troponin N/A 0 Total 0 I personally scribed for GABBIE SMITH MD ([email or web address]) on 08/20/24 at 19:50. Electronically submitted by Kalin Hernandez ([email or web address]). I personally scribed for GABBIE SMITH MD ([email or web address]) on 08/20/24 at 20:24. Electronically submitted by Kalin Hernandez [email or web address]). GABBIE SMITH MD Aug 20, 2024 19:50
[2024-08-20] MEDS: diphenhdrAMINE HCL 25 MG CAP PO ONE (19:51)
[2024-08-20 19:54] VITALS: BP 154/85; PULSE 70; RESP 20; TEMP 97.5; O2SAT 100
[2024-08-20 20:55] LABS: Anisocytosis Slight; Band Neutrophils % (manual) 2; Eosinophils % (manual) 3 (0-7); Hypochromia Marked; Large Platelets FEW; Lymphocytes % (manual) 25 (10.0-50.0); Monocytes % (manual) 12 (0-12); Platelet Estimate Adequate
[2024-08-20] MEDS ORDERED: FER325T PO (21:02)
[2024-08-20] MEDS ORDERED: DIPH25CA66 PO (21:02)
[2024-08-21] MEDS ORDERED: METH4PAK PO (05:51)
[2024-08-21] MEDS ORDERED: HYDR-3682 PO (05:53)
== END 2024-08-20 22:17 | disposition home or self-care (01) ==
LOC: ER 17:45
DX: D64.9 Anemia, unspecified (principal); N93.8 Other specified abnormal uterine and vaginal bleeding; D25.9 Leiomyoma of uterus, unspecified; I10 Essential (primary) hypertension; Z79.899 Other long term (current) drug therapy
CPT/HCPCS: 36415; 76856; 80053; 81001; 85007; 85025; 85027

== ENCOUNTER 2024-08-21 05:07 | Emergency (ER) | payer MEDICAID ==
[~2024-08-21] VITALS: Ht 162.6 cm; Wt 77.6 kg
[~2024-08-21 05:07] MED LIST changes: +DIPH25CA66 PO; +FER325T PO
--- NOTE | 2024-08-21 05:24 | ED.PDOC ---
HPI Allergic reaction HPI Comments This is a 58-year-old female presents to ED chief complaint continuous. Patient states he was originally seen here earlier today for vaginal bleeding. She states it units started around that time. She reports no known rash. She states the itching in his is inside her. Denies difficulty breathing, shortness of breath, chest pain, nausea, vomiting, throat swelling, fevers, chills, recent travel or known ill contacts. Chief Complaint: Allergic Reaction Time Seen by MD: 05:15 Primary Care Provider: none Reviewed Notes: Nurses Notes, Medications, Allergies Allergies: Coded Allergies: No Known Drug Allergy (Verified Allergy, Unknown, 12/05/22) Home Meds Active Scripts Diphenhydramine Hcl (Benadryl Allergy) 25 Mg Cap, 1 CAP PO Q6HP PRN, #60 CAP 1 Refill Prov:GABBIE SMITH MD 08/20/24 Ferrous Sulfate (FERROUS SULFATE) 325 Mg Tb, 1 TAB PO DAILY for 60 Days, #60 TAB 3 Refills Prov:GABBIE SMITH MD 08/20/24 Pantoprazole Sodium Sesquihydr (Protonix) 40 Mg Tab, 40 MG PO DAILY, #30 TAB Prov:LENO CROSS MD 06/18/24 Information Source: Patient Past Medical History PAST MEDICAL HISTORY: Anemia, HTN Surgical History: Denies all surgeries PATTERN GENERATOR OPERATOR History: Denies all PATTERN GENERATOR OPERATOR Hx Family History Family History: Reviewed,noncontributory to illness Social History Smoker: Non-Smoker Alcohol: Denies ETOH Use Drugs: Denies Drug Use Lives In: Home Constitutional: denies: chills, diaphoresis, fatigue, fever, malaise, sweats, weakness, others EENTM: denies: blurred vision, double vision, ear bleeding, ear discharge, ear drainage, ear pain, ear ringing, eye pain, eye redness, hearing loss, mouth pain, mouth swelling, nasal discharge, nose bleeding, nose congestion, nose pain, photophobia, tearing, throat pain, throat swelling, voice changes, others Respiratory: denies: cough, hemoptysis, orthopnea, SOB at rest, shortness of breath, SOB with excertion, stridor, wheezing, others Cardiovascular: denies: chest pain, dizzy spells, diaphoresis, Dyspnea on exertion, edema, irregular heart beat, left arm pain, lightheadedness, palpitations, PND, syncope, others Gastrointestinal: denies: abdomen distended, abdominal pain, blood streaked bowels, constipated, diarrhea, dysphagia, difficulty swallowing, hematemesis, melena, nausea, poor appetite, poor fluid intake, rectal bleeding, rectal pain, vomiting, others Genitourinary: denies: abnormal vagina bleeding, burning, dyspareunia, dysuria, flank pain, frequency, hematuria, incontinence, pain, , vagina discharge, urgency, others Neurological: denies: dizziness, fainting, headache, left sided numbness, left sided weakness, numbness, paresthesia, pre-existing deficit, right sided numbness, right sided weakness, seizure, speech problems, tingling, tremors, weakness, others Musculoskeletal: denies: back pain, gout, joint pain, joint swelling, muscle pain, muscle stiffness, neck pain, others Integumetry: reports: others (Itchiness); denies: bruises, change in color, change in hair/nails, dryness, laceration, lesions, lumps, rash, wounds Allergic/Immunocompromised: denies: Difficulty Healing, Frequent Infections, Hives, Itching, others Hematologic/Lymphatic: denies: anemia, blood clots, easy bleeding, easy bruising, swollen glands, others Endocrine: denies: excessive hunger, excessive sweating, excessive thirst, excessive urination, flushing, intolerance to cold, intolerance to heat, unexplained weight gain, unexplained weight loss, others Psychiatric: denies: anxiety, bipolar disorder, depression, hopeless, panic disorder, schizophrenia, sleepless, suicidal, others Physical Exam General Appearance: No Apparent Distress, Normal HEENT: Normal ENT Inspection, Pharynx Normal, TMs Normal Neck: Full Range of Motion, Non-Tender Respiratory: Lungs Clear, No Respiratory Distress, Normal Breath Sounds Cardiovascular: No Edema, No JVD, No Murmur, No Gallop, Normal Peripheral Pulses, Regular Rate/Rhythm Breast Exam: Deferred Gastrointestinal: No Organomegaly, Non Tender, No Pulsatile Mass, Normal Bowel Sounds, Soft Genitalia: Deferred Pelvic: Deferred Rectal: Deferred Extremities: Normal capillary refill, Normal inspection, Normal range of motion, Non-tender, No pedal edema Musculoskeletal : Apperance: Normal Neurologic: Alert, gas plant dispatcher II-XII nml as Tested, No Motor Deficits, Normal Affect, Normal Mood, No Sensory Deficits Cerebellar Function: Normal Reflexes: Normal Skin: Dry, Normal Color, Warm Lymphatic: No Adenopathy Was a procedure done? Was a procedure done?: No Differential diagnosis (all) Differential Diagnosis: Anaphylaxis, Angioedema, Hypotension, Shock X-Ray, Labs, Meds, VS Vital Signs Date Time Temp Pulse Resp B/P (MAP) Pulse Ox O2 Delivery O2 Flow Rate FiO2 08/21/24 05:43 78 17 99 Room Air* 0 21 08/21/24 05:43 99.2 74 17 143/84 (103) 99 99.2 08/21/24 05:35 16 98 Room Air* 0 21 08/21/24 05:35 98.1 76 16 187/77 (113) 98 98.1 Current Medications Medications (Trade) Dose Ordered Sig/Jose A Route Start Time Stop Time Status Last Admin Dexamethasone Sodium Phosphate (Decadron Injection) 10 mg ONCE ONCE IM 08/21/24 05:30 08/21/24 05:31 DC 08/21/24 05:47 Famotidine (Pepcid Tablet) 40 mg ONCE ONCE PO 08/21/24 05:30 08/21/24 05:31 DC 08/21/24 05:48 X-Ray, Labs, Meds, VS Comment Patient given Decadron 10 mg IM and Pepcid 40 mg p.o. patient reports improvement in symptoms requesting discharge at this time. Script Medrol Dosepak. And hydroxyzine. Advised to take medications as prescribed side effects discussed. Advised to follow up with the PCP in 1-2 days. ER return precautions given patient indicates understanding and agrees with discharge plan of care. Time of 1ST Reevaluation: 05:21 Reevaluation 1ST: Unchanged Patient Education/Counseling: Diagnosis, Treatment, Prognosis, Need For Follow Up Family Education/Counseling: No Family Present Departure 1 Departure Time of Disposition: 05:51 Impression: Primary Impression: Allergic reaction Qualified Codes: T78.40XA - Allergy, unspecified, initial encounter Disposition: HOME / SELF CARE / HOMELESS Condition: Stable e-Prescriptions Hydroxyzine Hcl (Hydroxyzine Hcl) 25 Mg Tab 1 TAB PO BID PRN for 7 Days, #14 TAB Prov: GALO BULL MANAGER PLANNING 08/21/24 Methylprednisolone (Medrol Dosepak) 4 Mg Simon 4 MG PO UD for 6 Days, #21 TAB UAD Prov: GALO BULL 08/21/24 Discharged With: Self Critical Care Note Critical Care Time?: No Stability Stability form required: GALO Tse Aug 21, 2024 05:24
[2024-08-21 05:43] VITALS: BP 143/84; PULSE 78; RESP 17; TEMP 99.2; O2SAT 99
[2024-08-21] MEDS: DexAMETHasone SOD PHOS 10MG/1ML VIAL INJ IM ONE (05:47)
[2024-08-21] MEDS: FAMOTIDINE 20 MG TAB PO ONE (05:48)
[2024-08-21] MEDS ORDERED: METH4PAK PO (05:51)
[2024-08-21] MEDS ORDERED: HYDR-3682 PO (05:53)
== END 2024-08-21 06:02 | disposition home or self-care (01) ==
LOC: ER 05:07
DX: T78.40XA Allergy, unspecified, initial encounter (principal); I10 Essential (primary) hypertension; Z79.899 Other long term (current) drug therapy; X58.XXXA Exposure to other specified factors, initial encounter
CPT/HCPCS: 96372; 99283; J1100